=== PATIENT | male | born 1970 | race Caucasian/White ===

== ENCOUNTER 2019-01-08 21:13 | Emergency (ER) | payer OTHER, MEDICAID, SELFPAY ==
[2019-01-08 21:18] VITALS: BP 135/88; PULSE 65; RESP 18; TEMP 36.8; O2SAT 95; BMI 28.6
[2019-01-08] MEDS: TET,DIPH,PERTUSS(ACELL),VAC/PF 0.5 ML SYRINGE IM (23:14)
[2019-01-08 23:22] VITALS: BP 132/84; PULSE 62; RESP 16; TEMP 36.8; O2SAT 98
--- NOTE | 2019-01-09 03:24 | ED.WOUNDLAC ---
HPI - Wound/Laceration General Chief Complaint: Wound/Laceration Stated Complaint: laceration right index finger Time Seen by Provider: 01/08/19 22:10 Source: patient Mode of arrival: ambulatory Limitations: no limitations History of Present Illness HPI narrative: 49M nonsmoker presents with injury to R index finger. He was working on his mountain bike when the tip of his finger was cut by a spinning break rotor. He has a laceration of his nail, without bleeding. No numbness or tingling. Tetnus is not current Onset (ago): hour(s) Place: home Patient tetanus UTD: No Context: accidental Associated symptoms: pain Related Data Home Medications Medication Instructions Recorded Confirmed Respironics DreamStation CPAP #1 ea 10/14/18 10/14/18 Previous Rx's Medication Instructions Recorded phenytoin sodium extended 30 mg PO BID #60 cap 10/10/16 [Dilantin] meloxicam 7.5 mg tablet 7.5 mg PO DAILY #30 tab 05/05/18 phenytoin sodium extended 30 mg 30 mg PO TID #90 cap 06/14/18 capsule methylphenidate 5 mg tablet 5 mg PO TID #90 tab 12/21/18 Allergies Allergy/AdvReac Type Severity Reaction Status Date / Time BENZOCAINE Allergy Mild Uncoded 05/05/18 15:28 Review of Systems Constitutional Denies chills, Denies fever(s), Denies lethargy and Denies weakness Eyes Denies change in vision, Denies eye discharge, Denies irritation and Denies loss of vision ENT Ears, Nose, Mouth, and Throat: Denies change in voice, Denies neck pain and Denies sore throat Cardiovascular Denies chest pain, Denies irregular heart rhythm, Denies lightheadedness, Denies palpitations, Denies dyspnea, Denies dyspnea on exertion and Denies orthopnea Respiratory Denies cough, Denies dyspnea, Denies dyspnea on exertion and Denies wheezing Gastrointestinal Gastrointestinal: Denies abdominal pain, Denies change in bowel habits, Denies diarrhea, Denies nausea and Denies vomiting Genitourinary Denies hematuria, Denies flank pain, Denies urinary incontinence and Denies urinary urgency Musculoskeletal Denies neck pain Integumentary/Breasts Denies pruritus, Denies erythema, Denies rash and Reports wounds Neurologic Denies confusion, Denies loss of vision and Denies weakness Psychiatric Denies anxiety, Denies confusion, Denies depression, Denies homicidal ideation and Denies suicidal ideation Endocrine Denies palpitations Hematologic/Lymphatic Denies easy bruising Allergic/Immunologic Denies wheezing [facility] Medical History Obstructive sleep apnea of adult (Chronic) Snoring (Chronic) Social History (Updated 10/17/18 @ 19:03 by AZUL Baig) marital status: details: to Sonali, lives in [place] household members: spouse lives independently: Yes caregiver/support person: No housing: house Smoking Status: Former smoker alcohol intake: never substance use type: does not use caffeine: Yes (2-3 cups daily) Social History marital status: details: betzy Lyon, lives in [place] household members: spouse lives independently: Yes caregiver/support person: No housing: house Smoking Status: Former smoker alcohol intake: never substance use type: does not use caffeine: Yes (2-3 cups daily) Exam Narrative Exam Narrative: GEN: AOx3 and in mild distress EYES: Pupils are equal, round, and reactive to light and accommodation. Extraoccular muscles are intact bilaterally. There is no subconjunctival hemorrhage or exudate. CHEST: Lungs are clear to auscultation bilaterally and free of wheezes, rales, or rhonchi. Heart rate is regular rhythm, there are no murmurs, clicks, rubs, or gallops. There is no chest wall tenderness. ABD: Abdomen is soft and nontender. There is no guarding or rebound. Bowel sounds are normal in all 4 quadrants. There is no mass or organomegaly. EXT: Small laceration to nail of R index finger. No bleeding or subungual hematoma. Full painless ROM of all extremities with no loss of sensation or strength. SKIN: Warm, pink, and dry. No erythema or rash Initial Vital Signs Initial Vital Signs: Vital Signs Temperature 98.2 F 01/08/19 21:18 Pulse Rate 65 01/08/19 21:18 Respiratory Rate 18 01/08/19 21:18 Blood Pressure 135/88 01/08/19 21:18 Pulse Oximetry 95 01/08/19 21:18 Procedures Laceration Repair Laceration 1: Site: hand Side (If applicable): right Size (cm): 0.5 Description: linear Depth: simple, single layer Skin layer closed with: dermabond Course Orders Ordered: Discontinued Medications Diphtheria/Tetanus/Acell Pertussis (Adacel) 0.5 ml IM .ONCE ONE Stop: 01/08/19 23:11 Last Admin: 01/08/19 23:14 Dose: 0.5 ml Vital Signs - 8 hr 01/08/19 21:18 01/08/19 23:22 Temperature 98.2 F 98.2 F Pulse Rate 65 62 Respiratory Rate 18 16 Blood Pressure 135/88 132/84 Pulse Oximetry 95 98 Discharge Plan Departure Patient Disposition: Home Clinical Impression: Laceration Discharge Date/Time: 01/08/19 23:22 Interventions: ED Discharge Assessment Last Done: 01/08/19 23:22 Instructions: DI for Minor Laceration Activity Restrictions/Additional Instructions: *You have been diagnosed with [ Right index laceration with nail involvement ] *What to do: *Take medications as directed: tylenol or motrin for pain *Follow up with your primary care provider in 2-3 days, call for an appointment. Let them know you were seen in the Emergency Department and that we ask that you be seen in follow up *Return to ER if you should have any new, worsening or concerning symptoms Prescriptions: No Action phenytoin sodium extended [Dilantin] 30 MG capsule 30 mg PO BID Qty: 60 RF: 0 phenytoin sodium extended [Dilantin] 30 mg capsule 30 mg PO TID Qty: 90 RF: 5 methylphenidate HCl 5 mg tablet 5 mg PO TID Qty: 90 RF: 0 meloxicam 7.5 mg tablet 7.5 mg PO DAILY Qty: 30 RF: 0 Respironics DreamStation CPAP Qty: 1 RF: 0
== END 2019-01-08 23:22 | disposition home or self-care (01) ==
PROVIDERS: Emergency Provider Emergency Medicine
DX: S61.210A Laceration without foreign body of right index finger without damage to nail, initial encounter (principal); W26.8XXA Contact with other sharp object(s), not elsewhere classified, initial encounter; Z23 Encounter for immunization
CPT/HCPCS: 90471; 99283; 90715

== ENCOUNTER 2019-06-16 07:56 | Emergency (ER) | payer OTHER, MEDICAID, SELFPAY ==
[2019-06-16 08:01] VITALS: BP 162/104; PULSE 60; RESP 16; TEMP 36.4; O2SAT 97; BMI 28.0
[2019-06-16] MEDS: LIDOCAINE 1% (PF) 2 ML SUBCUT (08:19)
--- NOTE | 2019-06-16 08:19 | ED_ITS ---
HPI - Wound/Laceration General Chief Complaint: Wound/Laceration Stated Complaint: cut left hand knuckle Time Seen by Provider: 06/16/19 07:57 Source: patient Mode of arrival: Ambulatory Limitations: no limitations History of Present Illness HPI narrative: Patient is a 49-year-old male who presents with left hand laceration. He was cleaning a paint roller with a sharp object with got away. He it has a laceration over his his 2nd MCP. No numbness tingling or decreased range of motion. Onset (ago): minute(s) Context: accidental Related Data Home Medications Medication Instructions Recorded Confirmed Respironics DreamStation CPAP #1 ea 04/25/19 05/10/19 cholecalciferol (vitamin D3) 5,000 5,000 unit PO DAILY 05/10/19 05/10/19 unit capsule cyanocobalamin (B12)-cobamamide tab SL 05/10/19 05/10/19 5,000 mcg-100 mcg sublingual tablet flaxseed oil 5 ml MISC BID 05/10/19 05/10/19 omega-3 fatty acids 1,000 mg 1,000 mg PO DAILY 05/10/19 05/10/19 capsule Previous Rx's Medication Instructions Recorded phenytoin sodium extended 30 mg PO BID #60 cap 10/10/16 [Dilantin] methylphenidate HCl 5 mg tablet 5 mg PO TID #270 tab MDD 15 mg 05/10/19 phenytoin sodium extended 30 mg 30 mg PO TID #90 cap MDD 90 mg 05/10/19 capsule Allergies Allergy/AdvReac Type Severity Reaction Status Date / Time benzocaine Allergy Verified 06/16/19 08:01 Review of Systems Review of Systems Narrative: GENERAL: Denies chills,fever HEENT: Denies throat pain RESPIRATORY: Denies dyspnea, cough, wheezing CARDIOVASCULAR: Denies chest pain, palpitations GASTROINTESTINAL: Denies nausea, vomiting MUSCULOSKELETAL: Denies extremity pain, injury SKIN: See HPI NEUROLOGIC: Denies weakness, dizziness, headache, numbness 8 point review of systems is negative except for those stated above and HPI Patient History Medical History ADHD (Chronic) Obstructive sleep apnea of adult (Chronic) Osteoarthritis (Chronic) Snoring (Chronic) Social History (Reviewed 06/16/19 @ 08:21 by TRACEE Escalona marital status: details: betzy Lyon, lives in [place] household members: spouse lives independently: Yes caregiver/support person: No housing: house Smoking Status: Former smoker alcohol intake: never substance use type: does not use caffeine: Yes (2-3 cups daily) Exam Initial Vital Signs Initial Vital Signs: Vital Signs Temperature 97.6 F 06/16/19 08:01 Pulse Rate 60 06/16/19 08:01 Respiratory Rate 16 06/16/19 08:01 Blood Pressure 162/104 H 06/16/19 08:01 Pulse Oximetry 97 06/16/19 08:01 GENERAL: Well-appearing, well-nourished and in no acute distress. CARDIOVASCULAR: peripheral pulses in tact, cap refill <2 sec RESPIRATORY: No respiratory distress, speaks in full sentences without difficulty EXTREMITIES: Normal range of motion, no clubbing or edema. Neurovascularly intact NEUROLOGICAL: Cranial nerves II through XII grossly intact. Normal gait and speech. SKIN: 2 cm laceration over left index finger MCP no decreased range of motion no tendon or ligament involvement. Does keep bleeding. No arterial bleed appreciated. Procedures Laceration Repair Laceration 1: Site: hand (2nd MCP) Side (If applicable): left Size (cm): 2 Description: linear Depth: simple, single layer Local Anesthetic: lidocaine 1% Amount of anesthesia used (mL): 1 Pre-repair: wound explored Skin layer closed with: nylon Size (cm): 4-0 Number of sutures: 3 Course Orders Ordered: Discontinued Medications Lidocaine HCl (Xylocaine 1% (Pf)) 2 ml SUBCUT NOW ONE Stop: 06/16/19 08:08 Last Admin: 06/16/19 08:19 Dose: 2 ml Documented by: LOIS Vital Signs Vital signs: Vital Signs - 8 hr 06/16/19 08:01 Temperature 97.6 F Pulse Rate 60 Respiratory Rate 16 Blood Pressure 162/104 H Pulse Oximetry 97 Discharge Plan Departure Patient Disposition: Home Clinical Impression: Laceration of left index finger Qualifiers: Encounter type: initial encounter Damage to nail status: without damage Foreign body presence: without foreign body Qualified Code(s): S61.211A - Laceration without foreign body of left index finger without damage to nail, initial encounter Discharge Date/Time: 06/16/19 08:40 Instructions: DI for Laceration Repair Activity Restrictions/Additional Instructions: 1. Have your suture removed in 5-7 days, you may go to walk-in clinic, return to the ER or call your primary care physician. 2. No soaking in water including dishes, bathtubs, Lakes, swimming pools etc 3. Signs of infection include, but not limited to, increased redness, increased swelling, increased pain, fever and purulent drainage, if the symptoms should arise, you may need an antibiotic and you should have a reevaluation either by your primary care provider or by the emergency department. Prescriptions: No Action cholecalciferol (vitamin D3) 5,000 unit capsule 5,000 unit PO DAILY RF: 0 omega-3 fatty acids 1,000 mg capsule 1,000 mg PO DAILY RF: 0 cyanocobalamin-cobamamide 5,000-100 mcg tablet, sublingual SL RF: 0 flaxseed oil Oil 5 ml MISC BID RF: 0 methylphenidate HCl 5 mg tablet 5 mg PO TID MDD 15 mg Qty: 270 RF: 0 Dilantin 30 mg capsule 30 mg PO TID MDD 90 mg Qty: 90 RF: 11 phenytoin sodium extended [Dilantin] 30 MG capsule 30 mg PO BID Qty: 60 RF: 0 (DME) Respironics DreamStation CPAP Qty: 1 RF: 0
== END 2019-06-16 08:40 | disposition home or self-care (01) ==
PROVIDERS: Emergency Provider Emergency Medicine
DX: S61.211A Laceration without foreign body of left index finger without damage to nail, initial encounter (principal); W26.9XXA Contact with unspecified sharp object(s), initial encounter
CPT/HCPCS: 12001; 99282; 99283

== ENCOUNTER 2020-04-04 17:39 | Emergency (ER) | payer OTHER, MEDICAID, SELFPAY ==
[2020-04-04 17:43] VITALS: BP 129/85; PULSE 80; RESP 16; TEMP 36.9; O2SAT 100; BMI 26.1
--- NOTE | 2020-04-04 18:15 | PC.NURSE ---
Reports pain and swelling had gradual onset, then knee started feeling stiff, no specific mechanism of injury. Took 600mg ibuprofen at 1330.
--- NOTE | 2020-04-04 18:54 | DI.RAD.S_ITS ---
PROCEDURE: XR KNEE RT 3V INDICATIONS: pain and swelling TECHNIQUE: 3 views of the knee were acquired. COMPARISON: [facility], , KNEE 3V LEFT, 10/04/2008, 10:49. FINDINGS: Bones: No fractures or dislocations. No suspicious bony lesions. Moderate tricompartmental periarticular osteophyte formation. Soft tissues: Moderate joint effusion. No suspicious soft tissue calcifications. IMPRESSION: 1. Osteoarthritis. 2. Knee joint effusion. 3. No acute fracture. No osseous lesion. If symptoms and/or clinical suspicion for pathology persist, further assessment with repeat, or advanced imaging (e.g., CT, MRI, or bone scan) may be helpful for further assessment. Dictated by: Jordan Medina M.D. on 04/04/2020 at 19:23 Approved by: Jordan Medina M.D. on 04/04/2020 at 19:23
[2020-04-04] MEDS: KETOROLAC 60 MG/2 ML VIAL 30 MG IM (19:05)
--- NOTE | 2020-04-04 19:46 | ED.LOWEXIN ---
HPI - Extremity Injury (Lower) <SERJIO Powers - Last Filed: 04/04/20 19:52> General Chief Complaint: Extremity Injury, Lower Stated Complaint: right leg swelling Time Seen by Provider: 04/04/20 18:21 Source: patient Mode of arrival: Ambulatory Limitations: no limitations History of Present Illness HPI Narrative: The patient is a 50-year-old male former smoker with history of right knee problems and pain who presents with a chief complaint of right knee pain and swelling. He states that he has had multiple injuries to that knee, including a complete dislocation. He states he does not seen orthopedist at this point time, but thinks he has bad arthritis. He took ibuprofen at about noon or 1:00 p.m. today. 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 He denies any recent surgeries to her right knee, but did have a scope of that knee. He denies any falls or specific trauma. He states he did work hard on it today. Related Data Home Medications Medication Instructions Recorded Confirmed Respironics DreamStation CPAP #1 ea 04/25/19 02/16/20 cholecalciferol (vitamin D3) 125 5,000 unit PO DAILY 05/10/19 02/16/20 mcg (5,000 unit) capsule cyanocobalamin (B12)-cobamamide tab SL 05/10/19 02/16/20 5,000 mcg-100 mcg sublingual tablet flaxseed oil 5 ml MISC BID 05/10/19 02/16/20 omega-3 fatty acids 1,000 mg 1,000 mg PO DAILY 05/10/19 02/16/20 capsule Previous Rx's Medication Instructions Recorded phenytoin sodium extended 30 mg PO BID #60 cap 10/10/16 [Dilantin] phenytoin sodium extended 30 mg 30 mg PO TID #90 cap MDD 90 mg 05/10/19 capsule methylphenidate HCl 5 mg tablet 5 mg PO TID #90 tab MDD 15 mg 11/16/19 ketorolac 10 mg PO TID PRN #15 tab 04/04/20 Allergies Allergy/AdvReac Type Severity Reaction Status Date / Time benzocaine Allergy Verified 02/16/20 15:03 Review of Systems <SERJIO Powers - Last Filed: 04/04/20 19:52> Review of Systems Narrative: GENERAL: Denies chills, fatigue, malaise, fever, sweats. HEENT: Denies sinus pain, ear pain, sore throat, difficulty swallowing, dizziness. RESPIRATORY: Denies dyspnea, cough, wheezing, hemoptysis, sputum. CARDIOVASCULAR: Denies chest pain, palpitations, orthopnea, edema, GASTROINTESTINAL: Denies nausea, vomiting, abdominal pain, diarrhea, constipation, melena. : Denies dysuria, frequency, incontinence, hematuria, urinary retention. MUSCULOSKELETAL: See HPI SKIN: Denies rash, skin lesions, or other NEUROLOGIC: Denies weakness, headache, numbness, change in speech, confusion, seizures, incoordination. PSYCHIATRIC: No concerning psychosocial issues. 12 point review of systems is negative except for those stated above Patient History <SERJIO Powers - Last Filed: 04/04/20 19:52> Medical History ADHD (Chronic) Obstructive sleep apnea of adult (Chronic) Osteoarthritis (Chronic) Snoring (Chronic) Social History marital status: details: betzy Lyon, lives in [place] household members: spouse lives independently: Yes caregiver/support person: No housing: house Smoking Status: Former smoker alcohol intake: never substance use type: does not use caffeine: Yes (2-3 cups daily) Smoking Status: Former smoker alcohol intake frequency: 0-2 drinks per day Substance Use Type: does not use Exam <SERJIO Powers - Last Filed: 04/04/20 19:52> Narrative Exam Narrative: GENERAL: This is a well-nourished, well-developed patient, in no acute distress HEAD: Atraumatic. Normocephalic. No temporal or scalp tenderness. EYES: Pupils equal round and reactive. Extraocular motions intact. No scleral icterus. No injection or drainage. ENT: Nose without bleeding, purulent drainage or septal hematoma. Wearing a mask. Airway patent. NECK: Trachea midline. No JVD or lymphadenopathy. Supple, nontender, no meningeal signs. CARDIOVASCULAR: Regular rate and rhythm RESPIRATORY: No cough. No increased respiratory effort. No accessory muscle use. EXTREMITIES: Pain to palpation superior to right knee. Able to fully flex and extend right knee. Negative varus valgus, negative anterior posterior drawer swelling noted superior to knee, positive knee effusion. Positive right pedal pulses. No erythema or palpable warmth. BACK: Nontender without deformity or crepitance. No flank tenderness. NEURO: AOx3. SKIN: No rash or erythema on visible skin Initial Vital Signs Initial Vital Signs: Vital Signs Temperature 98.5 F 04/04/20 17:43 Pulse Rate 80 04/04/20 17:43 Respiratory Rate 16 04/04/20 17:43 Blood Pressure 129/85 04/04/20 17:43 Pulse Oximetry 100 04/04/20 17:43 <Esteban Wang MD - Last Filed: 04/05/20 00:03> Initial Vital Signs Initial Vital Signs: Vital Signs Temperature 98.5 F 04/04/20 17:43 Pulse Rate 80 04/04/20 17:43 Respiratory Rate 16 04/04/20 17:43 Blood Pressure 129/85 04/04/20 17:43 Pulse Oximetry 100 04/04/20 17:43 Scores <SERJIO Powers - Last Filed: 04/04/20 19:52> GCS [place] coma scale eye opening: Spontaneous [place] coma scale verbal response: Orientated [place] coma scale motor response: Obey commands Katharine coma scale total score: 15 Wells' Criteria for DVT Active Cancer (Treatment within 6 months): No Bedridden recently >3 days or major surgery within 4 weeks: No Calf Swelling >3cm compared to other leg: No Collateral (nonvericose) superficial veins present: No Entire leg swollen: No Localized tenderness along the deep vein system: No Pitting edema, confined to symtomatic leg: No Paralysis, paresis, or recent plaster immobilization of ext: No Previously documented DVT: No Alternative dx to DVT as likely or more likely: Yes Wells' criteria for DVT: -2 Course <SERJIO Powers - Last Filed: 04/04/20 19:52> Orders Ordered: ED Orders 04/04/20 18:54 XR knee RT 3V Stat Discontinued Medications Ketorolac Tromethamine (Toradol) 30 mg IM NOW ONE Stop: 04/04/20 18:55 Last Admin: 04/04/20 19:05 Dose: 30 mg Documented by: BILL Vital Signs Vital signs: Vital Signs - 8 hr 04/04/20 17:43 04/04/20 20:08 04/04/20 20:10 Temperature 98.5 F 98.8 F 98.8 F Pulse Rate 80 65 65 Respiratory Rate 16 14 14 Blood Pressure 129/85 125/74 125/74 Pulse Oximetry 100 100 100 <Esteban Wang MD - Last Filed: 04/05/20 00:03> Orders Ordered: ED Orders 04/04/20 18:54 XR knee RT 3V Stat Discontinued Medications Ketorolac Tromethamine (Toradol) 30 mg IM NOW ONE Stop: 04/04/20 18:55 Last Admin: 04/04/20 19:05 Dose: 30 mg Documented by: BILL Vital Signs Vital signs: Vital Signs - 8 hr 04/04/20 17:43 04/04/20 20:08 04/04/20 20:10 Temperature 98.5 F 98.8 F 98.8 F Pulse Rate 80 65 65 Respiratory Rate 16 14 14 Blood Pressure 129/85 125/74 125/74 Pulse Oximetry 100 100 100 MDM - Extremity Injury (Lower) <SERJIO Powers - Last Filed: 04/04/20 19:52> Imaging Data Extremity x-ray #1: Radiologist's Impression: [address] [place] [address] XRay Report Signed Patient: Meghana Springer BMR#: [id number] : 1970Acct:[id number] Age/Sex: 50 / MDate of Service: 04/04/20 Loc: ED Accession Number: [id number] Procedure: XR knee RT 3V Ordering Provider: Constance Bermudez PROCEDURE: XR KNEE RT 3V INDICATIONS: pain and swelling TECHNIQUE: 3 views of the knee were acquired. COMPARISON: [facility], , KNEE 3V LEFT, 10/04/2008, 10:49. FINDINGS: Bones: No fractures or dislocations. No suspicious bony lesions. Moderate tricompartmental periarticular osteophyte formation. Soft tissues: Moderate joint effusion. No suspicious soft tissue calcifications. IMPRESSION: 1. Osteoarthritis. 2. Knee joint effusion. 3. No acute fracture. No osseous lesion. If symptoms and/or clinical suspicion for pathology persist, further assessment with repeat, or advanced imaging (e.g., CT, MRI, or bone scan) may be helpful for further assessment. Dictated by: Jordan Medina M.D. on 04/04/2020 at 19:23 Approved by: Jordan Medina M.D. on 04/04/2020 at 19:23 [facility] Narrative Medical decision making narrative: The patient is a 50-year-old male who presents with a chief complaint of left knee pain after work today. He does have a knee effusion, negative x-ray for any acute fractures, though noted to have arthritis and osteophyte formation. He did feel improved after Toradol. I did discuss at length the importance of follow-up with primary care provider he may need physical therapy, further imaging, referral to Orthopedics. Also gave patient contact information for [facility]. Patient has no questions or concerns upon discharge and states understanding of return precautions as well as follow-up care. Discharge Plan Departure Patient Disposition: Home Clinical Impression: Knee pain, right Qualifiers: Chronicity: acute Qualified Code(s): M25.561 - Pain in right knee Effusion of knee Qualifiers: Laterality: right Qualified Code(s): M25.461 - Effusion, right knee Discharge Date/Time: 04/04/20 20:11 Instructions: How To Perform RICE (Rest, Ice, Compress, Elevate), DI for Knee Effusion, DI for Knee Pain Activity Restrictions/Additional Instructions: As I discussed, your x-ray shows no acute fracture. This does not rule out a soft tissue injury such as a ligament or tendon injury. It is important that you follow up with primary care provider, especially if worsening or no improvement. There can be fractures that did not show up on initial x-ray. Please use rest ice compression elevation I sent a prescription of ketorolac or Toradol to [facility] I have given you a prescription of Toradol. This is an NSAID. Do not combine it with other NSAIDs such as Aleve or ibuprofen. I suggest taking it with some food, as it can irritate your stomach. Please follow-up with primary care provider in the next few days. You may benefit from further imaging, physical therapy, orthopedic referral. As discussed please come back to the emergency department for any acute concerns Prescriptions: New ketorolac 10 mg tablet 10 mg PO TID PRN (Reason: pain) Qty: 15 RF: 0 No Action cholecalciferol (vitamin D3) 5,000 unit capsule 5,000 unit PO DAILY RF: 0 omega-3 fatty acids 1,000 mg capsule 1,000 mg PO DAILY RF: 0 cyanocobalamin-cobamamide 5,000-100 mcg tablet, sublingual SL RF: 0 flaxseed oil Oil 5 ml MISC BID RF: 0 Dilantin 30 mg capsule 30 mg PO TID MDD 90 mg Qty: 90 RF: 11 phenytoin sodium extended [Dilantin] 30 MG capsule 30 mg PO BID Qty: 60 RF: 0 (DME) Respironics DreamStation CPAP Qty: 1 RF: 0 methylphenidate HCl 5 mg tablet 5 mg PO TID MDD 15 mg Qty: 90 RF: 0 Referrals: [facility] [Provider Group] Rosmery Steele ARNP [Primary Care Provider] - <Esteban Wang MD - Last Filed: 04/05/20 00:03> Cosign ED Attending Cosignature Attestation: I was immediately available in the department for consultation. This documentation has been reviewed and I agree with assessment and plan. Supervised by Esteban Wang MD
[2020-04-04 20:08] VITALS: BP 125/74; PULSE 65; RESP 14; TEMP 37.1; O2SAT 100
[2020-04-04 20:10] VITALS: BP 125/74; PULSE 65; RESP 14; TEMP 37.1; O2SAT 100
== END 2020-04-04 20:11 | disposition home or self-care (01) ==
PROVIDERS: Emergency Provider Nurse Practitioner Family; PCP Internal Medicine
DX: M25.461 Effusion, right knee (principal); M25.561 Pain in right knee
CPT/HCPCS: 73562; 96372; 99283; J1885

== ENCOUNTER → 2020-04-26 06:44 | Outpatient (CLI) | payer OTHER, MEDICAID, SELFPAY ==
--- NOTE | 2020-04-26 06:51 | DI.MRI.S_ITS ---
PROCEDURE: MR KNEE RT WO CON INDICATIONS: right knee pain TECHNIQUE: Noncontrast sagittal PD fast spin echo and T2 fast spin echo with fat saturation, sagittal 3-D FLASH with fat saturation; coronal T1 spin echo and PD fast spin echo with fat saturation, and axial PD fast spin echo with fat saturation through the knee. COMPARISON: [facility], CR, XR KNEE RT 3V, 04/04/2020, 18:51. FINDINGS: Image quality: Excellent. Menisci: Linear oblique high T2 signal intensity within the posterior horn medial meniscus is present, demonstrating inferior articular surface extension, indicating oblique tearing. There is amorphous high signal intensity throughout the anterior horn, body, and posterior horn lateral meniscus, demonstrating superior and inferior articular surface extension. Irregularity of the contours of the lateral meniscus is present, which is fragmented posteriorly. Cruciate ligaments: Full-thickness chronic tearing of the anterior cruciate ligament is present. There is high-grade fluid signal intensity within the posterior cruciate ligament. Medial structures: The medial collateral ligament appears intact. Visualized portions of the pes anserinus tendons appear normal. No abnormal bursal fluid. Lateral structures: The lateral collateral ligament demonstrates severe T2 signal elevation within its substance at the femoral origin. The long and short heads of the biceps femoris tendon appear intact. The popliteus tendon appears normal. Iliotibial band appears normal. Anterior structures: The quadriceps and patellar tendons appear intact. Patellar alignment is normal. No femoral trochlear dysplasia or ventral trochlear prominence. No edema in the infrapatellar fat pad. Bones and cartilage: No bone marrow contusions or fractures. Moderate tricompartmental periarticular osteophyte formation. Mild degenerative marrow edema within the subchondral aspects of the lateral femoral condyle and lateral tibial plateau. Intraosseous ganglia with surrounding degenerative marrow edema within the medial/central aspect of the tibial plateau. Mild articular cartilage loss diffusely overlies the weight-bearing aspects of the medial femoral condyle and medial tibial plateau. Severe articular cartilage loss diffusely overlies the weight-bearing aspects of the lateral femoral condyle and lateral tibial plateau. Mild articular cartilage loss overlies the medial and lateral patellar facets. Severe articular cartilage loss overlies the inferior aspect of the femoral trochlea. Joint space: There is a small knee joint effusion, a small ganglion cyst along the popliteus, and a small Newby's cyst. Multiple intra-articular loose bodies are present, predominantly within the popliteal synovial protrusion, largest of which is incompletely visualized measuring at least 16 mm. Normal appearing synovial plicae are incidentally noted. IMPRESSION: 1. Knee joint effusion, Newby's cyst, and ganglion cyst along the popliteus. Multiple intra-articular loose bodies. 2. Tricompartmental osteoarthritis with associated articular cartilage loss. 3. Medial and lateral meniscal tearing. 4. Full-thickness chronic anterior cruciate ligament tear. 5. High-grade posterior cruciate ligament tear. 6. High-grade lateral collateral ligament tear. Dictated by: Jordan Medina M.D. on 04/26/2020 at 8:48 Approved by: Jordan Medina M.D. on 04/26/2020 at 9:06
== END ==
PROVIDERS: PCP Registered Nurse; Referring Provider Registered Nurse; Visit Provider Registered Nurse
DX: M25.561 Pain in right knee (principal); S83.241A Other tear of medial meniscus, current injury, right knee, initial encounter; S83.281A Other tear of lateral meniscus, current injury, right knee, initial encounter; M25.461 Effusion, right knee; M71.21 Synovial cyst of popliteal space [Baker], right knee; S83.511A Sprain of anterior cruciate ligament of right knee, initial encounter; S83.521A Sprain of posterior cruciate ligament of right knee, initial encounter; S83.421A Sprain of lateral collateral ligament of right knee, initial encounter; M17.11 Unilateral primary osteoarthritis, right knee
CPT/HCPCS: 73721

== ENCOUNTER 2022-04-04 19:51 | Emergency (ER) | payer OTHER, MEDICAID, SELFPAY ==
[2022-04-04 19:58] VITALS: BP 141/90; PULSE 70; RESP 16; TEMP 36.1; O2SAT 98; BMI 26.2
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
[2022-04-04] MEDS: LIDOCAINE 1% (PF) 2 ML (20:34)
[2022-04-04 20:58] VITALS: BP 151/98; PULSE 67; O2SAT 97
== END 2022-04-04 20:57 | disposition home or self-care (01) ==
PROVIDERS: Emergency Provider Emergency Medicine
DX: S51.011A Laceration without foreign body of right elbow, initial encounter (principal); V19.9XXA Pedal cyclist (driver) (passenger) injured in unspecified traffic accident, initial encounter
CPT/HCPCS: 12002; 99282; 99283

== ENCOUNTER 2025-01-24 12:13 | Emergency (ER) | payer SELFPAY ==
[2025-01-24] VITALS (12 sets, daily range): BP systolic 147–172; BP diastolic 90–107; PULSE 65–73; RESP 12–18; TEMP 37; O2SAT 95–98; BMI 27.7
--- NOTE | 2025-01-24 | DI.CT.S_ITS ---
PROCEDURE: CT HEAD/BRAIN WO CON INDICATIONS: CONFUSED TECHNIQUE: Noncontrast 4.5 mm thick angled axial sections acquired from the foramen magnum to the vertex, with coronal and sagittal reformats. For radiation dose reduction, the following was used: automated exposure control, adjustment of mA and/or kV according to patient size. COMPARISON: None. FINDINGS: Image quality: Diagnostic. CSF spaces: Basal cisterns are patent. No extra-axial fluid collections. Ventricles are normal in size and shape. Brain: No midline shift. No intracranial mass effect or hemorrhage. Roberto- white matter interface is normal. Skull and face: Calvarium and visualized facial bones are intact, without suspicious lesions. Sinuses: Visualized sinuses and mastoids are clear. IMPRESSION: No acute intracranial pathology. Dictated by: Nathaniel Moore M.D. on 01/24/2025 at 13:36 Approved by: Nathaniel Moore M.D. on 01/24/2025 at 13:38
--- NOTE | 2025-01-24 13:04 | EKG_ITS ---
[facility] [address], [place] [address] Test Date: 2025-01-24 Pat Name: Meghana Springer Department: [facility] Room: Gender: Male Delicatessen Clerk: JAYLAN : 1970 Requested By: Order Number: [id number] Reading MD: Brent Arthur MD Measurements Intervals Boyers Rate: 68 P: 19 SD: 174 QRS: -21 QRSD: 108 T: 16 QT: 398 QTc: 423 Interpretive Statements Normal sinus rhythm Minimal voltage criteria for LVH, may be normal variant ( Campbell product ) Electronically Signed On 01-25-2025 8:44:56 PDT by Brent Arthur MD
--- NOTE | 2025-01-24 13:04 | DI.CT.S_ITS ---
PROCEDURE: CT ANGIO HEAD AND NECK INDICATIONS: confusion asking same question TECHNIQUE: After the administration of intravenous contrast, 1 mm thick sections acquired from the aortic arch through the [place] of [place]. 3-dimensional cxarpiz-lqgafmlnn-poieentglf (MIP) and/or volume rendering reformats were acquired of the central intracranial vasculature and neck separately. For radiation dose reduction, the following was used: automated exposure control, adjustment of mA and/or kV according to patient size. COMPARISON: None. FINDINGS: Image quality: Diagnostic. Cerebral CT Angiogram: Internal carotid arteries: No acute findings. Intracranial ICA are patent with no significant stenosis. No occlusion. No aneurysm. Anterior cerebral arteries: The proximal A2 segment is a single artery before branching into 2 separate arteries. No significant stenosis. No occlusion. No aneurysm. Middle cerebral arteries: Unremarkable. No significant stenosis. No occlusion. No aneurysm. Posterior cerebral arteries: Unremarkable. No significant stenosis. No occlusion. No aneurysm. Basilar artery: Unremarkable. No significant stenosis. No occlusion. No aneurysm. Vertebral arteries: Unremarkable as visualized. Dural venous sinuses: Unremarkable given phase of enhancement. Other: Arterial phase appearance of the brain parenchyma is unremarkable. Neck CT Angiogram: Internal carotid arteries: Unremarkable. No significant stenosis. No dissection or occlusion. Common carotid arteries: Unremarkable. No significant stenosis. No dissection or occlusion. External carotid arteries: Unremarkable. No occlusion. Vertebral arteries: Unremarkable. Left vertebral artery arises directly from the aorta. No significant stenosis. No dissection or occlusion. Aortic Arch and Mediastinum: Partially visualized aortic arch unremarkable without evidence of aneurysm. Origins of the great vessels unremarkable. Other: Right thyroid nodule measuring up to 3.7 cm. Chronic right clavicle fracture deformity. IMPRESSION: No significant intracranial arterial abnormality is seen. No significant abnormality is seen within the arteries of the neck. Right thyroid nodule measuring up to 3.7 cm, recommend nonurgent thyroid ultrasound for further evaluation. Any quantitative measurements of stenosis were performed using NASCET criteria. Dictated by: Nathaniel Moore M.D. on 01/24/2025 at 13:40 Approved by: Nathaniel Moore M.D. on 01/24/2025 at 13:51
--- NOTE | 2025-01-24 13:04 | DI.RAD.S_ITS ---
PROCEDURE: XR CHEST 1V INDICATIONS: Possible stroke TECHNIQUE: One view of the chest was acquired. COMPARISON: None. FINDINGS: Surgical changes and devices: None. Lungs and pleura: Lungs are clear. No pleural effusions or pneumothorax. Mediastinum: Mediastinal contours appear normal. Heart size is normal. Bones and chest wall: No suspicious bony lesions. Overlying soft tissues appear unremarkable. IMPRESSION: No acute cardiopulmonary abnormality is seen. Dictated by: Nathaniel Moore M.D. on 01/24/2025 at 14:15 Approved by: Nathaniel Moore M.D. on 01/24/2025 at 14:16
[2025-01-24 13:36] LABS: Add Manual Diff / Slide Review NO; Basophils Absolute Auto 0 /uL (0-100); Basophils Percent Auto 0.9 % (0-2); Eosinophils Absolute Auto 100 /uL (0-450); Hematocrit 42.1 % (41-53); Hemoglobin 14.9 g/dL (13.5-17.5); Lymphocytes Absolute Auto 1000 /uL (1100-4500); Lymphocytes Percent Auto 17.6 % (25-40); Mean Corpuscular HGB Conc 35.5 % (30-36); Mean Corpuscular Hemoglobin 31.9 PG (26-34); Monocytes Absolute Auto 400 /uL (0-900); Monocytes Percent Auto 7.4 % (3-14); Neutrophils Absolute Auto 4000 /uL (1500-7000); Neutrophils Percent Auto 73.1 % (50-75); Platelet Count 236 X10^3/uL (150-400); Red Blood Cell Count 4.67 X10^6/uL (4.5-5.9); Red Cell Distribution Width 13.1 % (11.6-14.8); White Blood Cell Count 5.5 X10^3/uL (4.5-11.0)
[2025-01-24 13:45] LABS: Prothrombin Time 11.2 SECONDS (9.4-12.5)
[2025-01-24 13:48] LABS: PTT Partial Thromboplastin Tim 35 SECONDS (25.1-36.5)
[2025-01-24 13:49] LABS: Alanine Aminotransferase 38 IU/L (<50); Albumin Globulin Ratio 1.6 (1.0-2.8); Alkaline Phosphatase 60 U/L (38-126); Aspartate Aminotransferase 37 IU/L (17-59); BUN Creatinine Ratio 17.2 (6-22); Bilirubin Total 0.7 mg/dL (0.2-1.3); Blood Urea Nitrogen 17 mg/dL (9-20); Calcium 9.4 mg/dL (8.4-10.2); Carbon Dioxide 26 mmol/L (22-32); Chloride 105 mmol/L (98-107); Creatine Kinase 236 U/L (55-170); Estimated Glomerular Filt Rate > 60 mL/min (>60); Globulin 3.1 g/dL (1.7-4.1); Glucose 105 mg/dL (70-99); HEMOLYSIS 15 (0-50); Potassium 4.3 mmol/L (3.4-5.1); Sodium 140 mmol/L (137-145); Total Protein 8.1 g/dL (6.3-8.2)
--- NOTE | 2025-01-24 13:52 | PC.NURSE ---
reports seeing at 0630 and he was normal. She left and when she returned around 1000 he appeared confused, kept asking the same questions over and over again. He states he felt like was in a dream. Pt is alert and initially not oriented to date, thinks 2020 at time of placing IV. Currently oriented to date.
[2025-01-24 14:01] LABS: Troponin I < 0.012 ng/mL (0.01-0.034)
--- NOTE | 2025-01-24 14:01 | ED.AMS ---
HPI - Altered Mental Status General Chief Complaint: Altered Mental Status Stated Complaint: confusion, Time Seen by Provider: 01/24/25 13:20 Source: patient Mode of arrival: Ambulatory History of Present Illness HPI narrative: Patient brought here by for altered mental status. Patient was at walk-in clinic and was sent here. Last well no 6:30 a.m. this morning. had left the house and was talking to patient before she left and he was at baseline. However she returned at 10:00 a.m. today defined patient with his food and lunch out and he does not recall preparing his lunch. He repeated questions about his child being at home. This is very atypical of his behavior. In triage patient was not oriented to date or president. However now 2:00 p.m. patient is at baseline. Patient has history of ADHD and uses Dilantin off-label for ADHD. No prior history of heart attack strokes diabetes or seizures. Patient did not have any contact or phone calls with anybody this morning after left. No fall or injury. Patient denies any pain no headache. Denies any drug or alcohol use abuse. Patient in no distress at this time. Related Data Home Medications ?Medication ?Instructions ?Recorded ?Confirmed Respironics DreamStation CPAP #1 ea 04/25/19 01/21/24 cholecalciferol (vitamin D3) 125 5,000 unit PO DAILY 05/10/19 01/21/24 mcg (5,000 unit) capsule cyanocobalamin (B12)-cobamamide tab sublingual 05/10/19 01/21/24 5,000 mcg-100 mcg sublingual tablet flaxseed oil 5 ml miscellaneous BID 05/10/19 01/21/24 omega-3 fatty acids 1,000 mg 1,000 mg PO DAILY 05/10/19 01/21/24 capsule focus factor 3 tab PO DAILY 12/11/20 01/21/24 Previous Rx's ?Medication ?Instructions ?Recorded phenytoin sodium extended 30 mg 30 mg PO TID Adult ADD/anxiety #90 07/24/23 capsule (Dilantin) caps methylphenidate HCl 5 mg tablet 5 mg PO TID Adult ADD #90 tabs 05/13/24 Allergies Allergy/AdvReac Type Severity Reaction Status Date / Time benzocaine Allergy Verified 01/24/25 12:53 Review of Systems Review of Systems Narrative: GENERAL: Negative chills, fatigue, malaise, fever, sweats. HEENT: Negative sinus pain, ear pain, sore throat RESPIRATORY: Negative dyspnea, cough CARDIOVASCULAR: Negative chest pain, palpitations GASTROINTESTINAL: Negative vomiting, nausea, abdominal pain : Negative dysuria, frequency, hematuria MUSCULOSKELETAL: Negative muscle or bony pain SKIN: Negative rash, skin lesions NEUROLOGIC: Negative weakness, numbness, positive altered mental status ROS Unobtainable: All systems reviewed & are unremarkable except as noted in HPI and below Patient History Medical History ADHD Medication management Obstructive sleep apnea of adult Osteoarthritis Snoring Social History marital status: details: betzy Lyon, lives in [place] household members: spouse lives independently: Yes caregiver/support person: No housing: house Smoking Status: Former smoker alcohol intake: never substance use type: does not use caffeine: Yes (2-3 cups daily) Type(s) of exercise: bicycling frequency: 5-6 times per week duration: 45-60 minutes/day Smoking Status: Former smoker alcohol intake frequency: 0-2 drinks per day Exam Narrative Exam Narrative: GENERAL: in no distress, not toxic not dyspneic HEAD: Normocephalic. EYES: Pupils equal round ENT: Mucous membranes moist. NECK: Trachea midline. CARDIOVASCULAR: Regular rate and rhythm RESPIRATORY: Clear to auscultation. Breath sounds equal bilaterally. No wheezes, rales, or rhonchi. GASTROINTESTINAL: Abdomen soft, non-tender EXTREMITIES: No gross deformities. BACK: No flank tenderness. NEURO: AOx4. Clear speech fast exam is negative. 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 Elevate each leg without drift. SKIN: Warm and dry PSYCH: Not anxious, is cooperative however, patient is very giddy, laughs at times inappropriately to answers. Initial Vital Signs Initial Vital Signs: Vital Signs Temperature 98.6 F 01/24/25 12:51 Pulse Rate 72 01/24/25 12:51 Respiratory Rate 18 01/24/25 12:51 Blood Pressure 172/102 H 01/24/25 12:51 Pulse Oximetry 98 01/24/25 12:51 Oxygen Delivery Method Room Air 01/24/25 12:51 Course Orders Ordered: Discontinued Medications Sodium Chloride (Normal Saline 0.9%) 1,000 mls @ 1,000 mls/hr IV BOLUS ONE Stop: 01/24/25 14:59 Last Infusion: 01/24/25 15:12 Dose: Infused Documented By: Admin: 01/24/25 14:14 Dose: 1,000 mls/hr Documented By: YESICA Ondansetron HCl (Ondansetron 4 Mg/2 Ml Inj) 4 mg IV NOW PRN PRN Reason: Nausea And Vomiting Ondansetron HCl (Ondansetron 4 Mg Odt) 4 mg PO NOW PRN PRN Reason: Nausea And Vomiting Vital Signs Vital signs: Vital Signs - 8 hr 01/24/25 12:51 01/24/25 13:34 01/24/25 13:35 Temperature 98.6 F Pulse Rate 72 72 73 Respiratory Rate 18 15 12 Blood Pressure 172/102 H Pulse Oximetry 98 96 98 Oxygen Delivery Method Room Air 01/24/25 13:35 01/24/25 14:00 01/24/25 14:14 Temperature Pulse Rate 66 Respiratory Rate 14 Blood Pressure 161/99 H 161/101 H Pulse Oximetry 97 Oxygen Delivery Method 01/24/25 14:14 01/24/25 14:30 01/24/25 15:00 Temperature Pulse Rate 71 Respiratory Rate 18 Blood Pressure 163/95 H 150/90 H Pulse Oximetry 98 Oxygen Delivery Method Room Air 01/24/25 15:00 Temperature Pulse Rate Respiratory Rate Blood Pressure 151/90 H Pulse Oximetry Oxygen Delivery Method MDM - Altered Mental Status Lab Data 01/24/25 13:12 01/24/25 13:12 Labs: Lab Results 01/24/25 01/24/25 Range/Units 13:12 14:11 WBC 5.5 (4.5-11.0) X10^3/uL RBC 4.67 (4.5-5.9) X10^6/uL Hgb 14.9 (13.5-17.5) g/dL Hct 42.1 (41-53) % MCV 90.0 (80-100) fL MCH 31.9 (26-34) PG MCHC 35.5 (30-36) % RDW 13.1 (11.6-14.8) % Plt Count 236 (150-400) X10^3/uL Neut % (Auto) 73.1 (50-75) % Lymph % (Auto) 17.6 L (25-40) % [place] % (Auto) 7.4 (3-14) % Eos % (Auto) 1.0 L (2-4) % Baso % (Auto) 0.9 (0-2) % Neut # (Auto) 4000 (4485-6593) /uL Lymph # (Auto) 1000 L (8984-4842) /uL [place] # (Auto) 400 (0-900) /uL Eos # (Auto) 100 (0-450) /uL Baso # (Auto) 0 (0-100) /uL PT 11.2 (9.4-12.5) SECONDS INR 1.0 (0.9-1.3) APTT 35 (25.1-36.5) SECONDS Sodium 140 (137-145) mmol/L Potassium 4.3 (3.4-5.1) mmol/L Chloride 105 (98-107) mmol/L Carbon Dioxide 26 (22-32) mmol/L BUN 17 (9-20) mg/dL Creatinine 0.99 (0.66-1.25) mg/dL Estimated GFR > 60 (>60) mL/min BUN/Creatinine Ratio 17.2 (6-22) Glucose 105 H (70-99) mg/dL Calcium 9.4 (8.4-10.2) mg/dL Total Bilirubin 0.7 (0.2-1.3) mg/dL AST 37 (17-59) IU/L ALT 38 (<50) IU/L Alkaline Phosphatase 60 (38-126) U/L Total Creatine Kinase 236 H (55-170) U/L Troponin I < 0.012 (0.01-0.034) ng/mL Total Protein 8.1 (6.3-8.2) g/dL Albumin 5.0 (3.5-5.0) g/dL Globulin 3.1 (1.7-4.1) g/dL Albumin/Globulin Ratio 1.6 (1.0-2.8) TSH 1.47 (0.47-4.68) uIU/mL U Opiates 300ng/mL cut Negative (Negative) Ur Oxycodone Screen Negative (Negative) Urine Methadone Screen Negative (Negative) Ur Barbiturates Screen Positive H (Negative) Phenytoin < 3.0 L (10-20) ug/mL U Tricyclic Antidepress Negative (Negative) Ur Phencyclidine Scrn Negative (Negative) Ur Amphetamines Screen Negative (Negative) U Methamphetamines Scrn Negative (Negative) Ur MDMA Scrn (Ecstasy) Negative (Negative) U Benzodiazepines Scrn Negative (Negative) Urine Cocaine Screen Negative (Negative) U Marijuana (THC) Screen Negative (Negative) Urine pH Normal (Normal) Urine Specific Cope Normal (Normal) Ethyl Alcohol < 10 (<10) mg/dL Ur Creatinine Normal (Normal) Point of Care Testing Glucose POC 95 Urine Dip Bedside Urine Glucose Negative Bedside Urine Bilirubin - Negative Bedside Urine Ketone - Negative Urine Specific Cope 1.010 Bedside Urine Occult Blood - Negative Bedside Urine pH 7.0 Bedside Urine Protein - Negative Bedside Urine Urobilinogen - Negative Bedside Urine Nitrite - Negative Bedside Urine Leukocytes - Negative Esterase Imaging Data CT scan - head: Radiologist's Impression: [address] [address] [address] Scan Report Signed Patient: Meghana Springer MR#: [id number] : 1970 Acct:[id number] Age/Sex: 55 / M Date of Service: 01/24/25 Loc: ED Accession Number: [id number] Procedure: CT head/brain wo con Ordering Provider: Esteban Wang MD PROCEDURE: CT HEAD/BRAIN WO CON INDICATIONS: CONFUSED TECHNIQUE: Noncontrast 4.5 mm thick angled axial sections acquired from the foramen magnum to the vertex, with coronal and sagittal reformats. For radiation dose reduction, the following was used: automated exposure control, adjustment of mA and/or kV according to patient size. COMPARISON: None. FINDINGS: Image quality: Diagnostic. CSF spaces: Basal cisterns are patent. No extra-axial fluid collections. Ventricles are normal in size and shape. Brain: No midline shift. No intracranial mass effect or hemorrhage. Roberto-white matter interface is normal. Skull and face: Calvarium and visualized facial bones are intact, without suspicious lesions. Sinuses: Visualized sinuses and mastoids are clear. IMPRESSION: No acute intracranial pathology. Dictated by: Nathaniel Moore M.D. on 01/24/2025 at 13:36 Approved by: Nathaniel Moore M.D. on 01/24/2025 at 13:38 CTA - brain/neck: Radiologist's Impression: [address] [address] [address] Scan Report Signed Patient: Meghana Springer MR#: [id number] : 1970 Acct:[id number] Age/Sex: 55 / M Date of Service: 01/24/25 Loc: ED Accession Number: [id number] Procedure: CT angio head and neck Ordering Provider: Esteban Wang MD PROCEDURE: CT ANGIO HEAD AND NECK INDICATIONS: confusion asking same question TECHNIQUE: After the administration of intravenous contrast, 1 mm thick sections acquired from the aortic arch through the [place] of [place]. 3-dimensional temtmen-pbuvidojm-bhgpndrqdk (MIP) and/or volume rendering reformats were acquired of the central intracranial vasculature and neck separately. For radiation dose reduction, the following was used: automated exposure control, adjustment of mA and/or kV according to patient size. COMPARISON: None. FINDINGS: Image quality: Diagnostic. Cerebral CT Angiogram: Internal carotid arteries: No acute findings. Intracranial ICA are patent with no significant stenosis. No occlusion. No aneurysm. Anterior cerebral arteries: The proximal A2 segment is a single artery before branching into 2 separate arteries. No significant stenosis. No occlusion. No aneurysm. Middle cerebral arteries: Unremarkable. No significant stenosis. No occlusion. No aneurysm. Posterior cerebral arteries: Unremarkable. No significant stenosis. No occlusion. No aneurysm. Basilar artery: Unremarkable. No significant stenosis. No occlusion. No aneurysm. Vertebral arteries: Unremarkable as visualized. Dural venous sinuses: Unremarkable given phase of enhancement. Other: Arterial phase appearance of the brain parenchyma is unremarkable. Neck CT Angiogram: Internal carotid arteries: Unremarkable. No significant stenosis. No dissection or occlusion. Common carotid arteries: Unremarkable. No significant stenosis. No dissection or occlusion. External carotid arteries: Unremarkable. No occlusion. Vertebral arteries: Unremarkable. Left vertebral artery arises directly from the aorta. No significant stenosis. No dissection or occlusion. Aortic Arch and Mediastinum: Partially visualized aortic arch unremarkable without evidence of aneurysm. Origins of the great vessels unremarkable. Other: Right thyroid nodule measuring up to 3.7 cm. Chronic right clavicle fracture deformity. IMPRESSION: No significant intracranial arterial abnormality is seen. No significant abnormality is seen within the arteries of the neck. Right thyroid nodule measuring up to 3.7 cm, recommend nonurgent thyroid ultrasound for further evaluation. Any quantitative measurements of stenosis were performed using NASCET criteria. Dictated by: Nathaniel Moore M.D. on 01/24/2025 at 13:40 Approved by: Nathaniel Moore M.D. on 01/24/2025 at 13:51 Chest x-ray: Radiologist's Impression: [address] [address] XRay Report Signed Patient: Meghana Springer MR#: [id number] : 1970 Acct:[id number] Age/Sex: 55 / M Date of Service: 01/24/25 Loc: ED Accession Number: [id number] Procedure: XR chest 1V Ordering Provider: Esteban Wang MD PROCEDURE: XR CHEST 1V INDICATIONS: Possible stroke TECHNIQUE: One view of the chest was acquired. COMPARISON: None. FINDINGS: Surgical changes and devices: None. Lungs and pleura: Lungs are clear. No pleural effusions or pneumothorax. Mediastinum: Mediastinal contours appear normal. Heart size is normal. Bones and chest wall: No suspicious bony lesions. Overlying soft tissues appear unremarkable. IMPRESSION: No acute cardiopulmonary abnormality is seen. Dictated by: Nathaniel Moore M.D. on 01/24/2025 at 14:15 Approved by: Nathaniel Moore M.D. on 01/24/2025 at 14:16 MDM Narrative Medical decision making narrative: Patient brought here by for altered mental status. Patient was at walk-in clinic and was sent here. Last well no 6:30 a.m. this morning. had left the house and was talking to patient before she left and he was at baseline. However she returned at 10:00 a.m. today defined patient with his food and lunch out and he does not recall preparing his lunch. He repeated questions about his child being at home. This is very atypical of his behavior. In triage patient was not oriented to date or president. However now 2:00 p.m. patient is at baseline. Patient has history of ADHD and uses Dilantin off-label for ADHD. No prior history of heart attack strokes diabetes or seizures. Patient did not have any contact or phone calls with anybody this morning after left. No fall or injury. Patient denies any pain no headache. Denies any drug or alcohol use abuse. Patient in no distress at this time. After history and exam, CBC CMP troponin EKG CT head CT angiogram head and neck urinalysis drug screen TSH alcohol level Dilantin level [facility] Medical records reviewed: No recent visit for this complaint Differential considered: Includes but not limited to TIA stroke transient global amnesia dehydration substance abuse seizure hypoglycemia Lab Test results independently reviewed as above. Pertinent findings: WBC 5.5 hemoglobin 14.9 INR 1.0 sodium 140 potassium 4.3 BUN 17 creatinine 0.99 glucose 105 AST 37 ALT 38 total CK 236, drug screen positive barbiturates, Dilantin less than 3.0 Independently reviewed EKG normal sinus rhythm rate [address] elevation or depression Imaging studies independently reviewed: CT head CT angiogram head and neck chest x-ray no acute finding Consultations: None indicated at this time Re-evaluations: 4:01 p.m.. Patient much more relaxed now. Not as get a as he was before. Patient now remembers that he and his ordered a supplement to help for cognition on [employer]. It is trigonelline hydrochloride [email or web address]. Nurse, Sadnra ramos called poison control and they are not aware of this product. However it did test positive for barbiturates, this can cause altered mental status. They will throw away this medication. He does recall taking the 1st pill today for the 1st time after left this morning. Discussion: Appropriate for discharge home. Patient likely had drug reaction. This product is not FDA approved. There is little known about this product. Patient back at baseline at time of discharge. Return precautions reviewed. They desire discharge home. Blood pressure noted, however this could be due to ingredients in the product that he bought. He will have his blood pressure rechecked with family doctor Diagnosis: Drug reaction Discharge Plan Departure Patient Disposition: Home Clinical Impression: Adverse drug reaction Instructions: DI for Adverse Drug Reaction--Other Activity Restrictions/Additional Instructions: Please discontinue and dispose of the new product you purchase on [employer]. This is likely the source of the confusion and behavior changes today. See family doctor in a week for re-evaluation. Return if worse if any questions or concerns Prescriptions: No Action cholecalciferol (vitamin D3) 5,000 unit capsule 5,000 unit PO DAILY omega-3 fatty acids 1,000 mg capsule 1,000 mg PO DAILY cyanocobalamin-cobamamide 5,000-100 mcg tablet, sublingual SL flaxseed oil Oil 5 ml MISC BID (DME) Respironics DreamStation CPAP Qty: 1 Dose Instruction: As directed Patient Comments: Pressure: 6-14 cmH2O DME: [facility] Rx Instructions: As directed methylphenidate HCl 5 mg tablet 5 mg PO TID MDD 15 mg Qty: 90 0RF Rx Instructions: Take 1 tab up to 3 times a day for Adult ADD call for refills Dilantin 30 mg capsule 30 mg PO TID MDD 90 mg Qty: 90 11RF Rx Instructions: Take 1 cap 3 times a day for Adult ADD and anxiety focus factor 3 tab PO DAILY Referrals: Amara Pulliam DO [Primary Care Provider, Family Practice] Stand Alone Forms: Patient Portal/API
[2025-01-24] MEDS: SODIUM CHLORIDE 0.9% 1,000 ML 1000 ML IV (14:14)
[2025-01-24 14:19] LABS: Ethanol (ETOH) < 10 mg/dL (<10)
[2025-01-24 14:25] LABS: Phenytoin / Dilantin < 3.0 ug/mL (10-20)
[2025-01-24 14:42] LABS: Ur Creatinine Normal (Normal); Ur Specific Gravity Normal (Normal); Urine Amphetamines Negative (Negative); Urine Barbiturates Positive (Negative); Urine Benzodiazepines Negative (Negative); Urine Cocaine Negative (Negative); Urine MDMA Negative (Negative); Urine Methadone Negative (Negative); Urine Opiates Negative (Negative); Urine Oxycodone Negative (Negative); Urine Phencyclidine Negative (Negative); Urine THC Negative (Negative); Urine Tricyclic Antidepressant Negative (Negative); Urine pH Normal (Normal)
[2025-01-24 14:44] LABS: Thyroid Stimulating Hormone 1.47 uIU/mL (0.47-4.68)
--- NOTE | 2025-01-24 14:57 | PC.NURSE ---
This RN checks on patient. Asks this RN what they are testing for in his blood/urine. Pt states, I feel like I'm coming off a high. [facility] has not taking any drugs, but did take a new supplement called neurogan trigonelle hydrochloride that was from [employer]. States he took 2 of these today. This RN tells patient tests that were run today. Provider Felipe made aware.
--- NOTE | 2025-01-24 15:07 | PC.NURSE ---
Provider Felipe made aware of patient supplement taken and patient comments. Verbal direction to reach out to poison control.
--- NOTE | 2025-01-24 15:27 | PC.NURSE ---
Addendum entered by Mar Woodard R.N. 01/24/25 15:39: Pharmacist Chucho does state patient should stop taking the supplement. Patient made aware. Original Note: This RN speaks to poison control at and speaks to pharmacist Chucho. Chucho is made aware of patient presentation, vitals, tox screen and supplements taken as well as all medications/supplements patient takes. Per [place] supplements are not regulated by FDA. Since symptoms improving there is no current recommendations due to how unknown supplement can be. Chucho also makes this RN aware that naproxen or ibuprofen can make a false positive for barbiturates. She also states patient can file a report to the FDA med-watch. Chucho also states patient can call back to poison control if they should have any other questions or concerns. Provider Felipe made aware of phone call with poison control.
== END 2025-01-24 16:19 | disposition home or self-care (01) ==
PROVIDERS: Emergency Provider Emergency Medicine; PCP Family Medicine
DX: T50.905A Adverse effect of unspecified drugs, medicaments and biological substances, initial encounter (principal); R41.82 Altered mental status, unspecified
CPT/HCPCS: 36415; 70450; 70496; 70498; 71045; 80053; 80185; 80305; 80320; 81003; 82550; 82962; 84443; 84484; 85025; 85610; 85730; 93005; 93010; 96360; 99285; Q9967